=== PATIENT | female | born 1965 | race Caucasian/White ===

== ENCOUNTER 2019-03-25 14:30 | Inpatient (IN) ==
[2019-03-25] MEDS ORDERED: MORPHINE IV ONE (15:00)
--- NOTE | 2019-03-25 15:05 | PROVIDER DOCUMENTATION ---
HPI-Musculoskeletal Pain/Inj - GENERAL Stated Complaint: fall Time Seen by Provider: 03/25/19 14:57 Source: patient - HX OF PRESENT ILLNESS-MUSKULOSKELTAL Nature of Presenting Problem: 53 YO F no pmh presents s/p trip and fall while at work. States she landed on her right hip and had some numbness and deformity. Denies LOC, head trauma, neck or back pain, or recent illness. No bladder or bowel problems. She has not broken a bone before. Last time for eating was 1130 today. Quality of Pain: reports: aching Severity in ED: moderate Onset/Duration: 1-3 hours ago Timing: still present Modifying Factors: improves with: nothing Any recent injury?: Yes Locality of Occurance: Work Similar Symptoms Previously?: No - FALL INJURY Location of Pain/Injury: reports: pelvis, lower extremity, other (right hip) Pain Radiation: reports: no radiation Reason for Fall: reports: tripped Symptoms prior to fall:: reports: none Injury Associated Symptoms: reports: trouble walking. denies: back/neck pain, nausea, vomiting, weakness - HIP/PELVIS PAIN/INJURY Hip Pain Location: reports: hip (R) Pain Radiation: reports: no radiation Associated Symptoms: reports: denies symptoms Review of Systems - Adult - REVIEW OF SYSTEMS - ADULT Constitutional: reports: no symptoms reported Eyes: reports: no symptoms reported Ears, Nose, Mouth & Throat: reports: no symptoms reported Cardiovascular: reports: no symptoms reported Respiratory: denies: shortness of breath, wheezing Gastrointestinal: denies: abdominal pain, diarrhea, nausea, vomiting Genitourinary: denies: dysuria, frequency Musculoskeletal: reports: see HPI Integumentary: denies: no symptoms reported Neurological: reports: numbness Hematologic/Lymphatic: reports: no symptoms reported Allergic/Immunologic: reports: no symptoms reported Past History - Adult - PAST MEDICAL HISTORY-ADULT Review of Records: reports: Nursing Assessment Review, Medications Reviewed, Social history reviewed & non-contributory. Major Childhood Illnesses: reports: denies history Cardiovascular: reports: denies history Respiratory: reports: denies history Gastrointestinal: reports: denies history Obstetrical/Gynecological: reports: denies history Genitourinary: reports: denies history Musculoskeletal: reports: denies history Psychiatric: reports: denies history Endocrine/Immune: reports: denies history - PRIOR SURGERIES/PROCEDURES Surgical/Procedure History: reports: recent surgery, cholecystectomy - SOCIAL HISTORY Smoking: denies Substance Use: none/never Alcohol Use Frequency: occasionally Living Situation: family Physical Exam-Injury Related - Physical Exam-Injury Related Initial Vital Signs Reviewed: Yes General Appearance: appears well, alert, no apparent distress Head, Ears, Nose, Mouth & Throat: normocephalic/atraumatic, moist mucous membranes Neck: full range of motion, supple Cardiovascular: normal peripheral pulses, regular rate, rhythm, no edema Peripheral Pulses: dorsalis-pedis (R): 2+, dorsalis-pedis (L): 2+ Abdominal Exam: normal bowel sounds, non tender, soft. negative: guarding, rigid, rebound, tenderness, hernia, mass Extremity: deformity (angulation of left thigh). negative: normal range of motion, normal gait, pulse deficit, pedal edema Integumentary: normal color, warm/dry Neurologic: grossly normal Psych/Mental Status: normal mood/affect Progress - PLAN OF CARE/RESULTS Progress/Plan/Lab Results: Vital Signs - 8 hr 03/25/19 15:01 03/25/19 16:26 Temperature 98.2 F 97.6 F Pulse Rate 62 76 Respiratory Rate 16 24 Blood Pressure 157/95 144/91 O2 Sat by Pulse Oximetry 98 100 Laboratory Results - last 24 hr 03/25/19 03/25/19 03/25/19 16:25 16:25 17:27 WBC 11.65 H RBC 4.78 Hgb 14.8 Hct 44.1 MCV 92.3 MCH 31.0 MCHC 33.6 RDW Std Deviation 14.1 Plt Count 240 MPV 10.4 Immature Gran % (Auto) 0.2 Neut % (Auto) 88.1 H Lymph % (Auto) 6.2 L Perkins % (Auto) 5.3 Eos % (Auto) 0.0 Baso % (Auto) 0.2 Immature Gran # (Auto) 0.02 Neut # (Auto) 10.27 H Lymph # (Auto) 0.72 L Perkins # (Auto) 0.62 H Eos # (Auto) 0.00 Baso # (Auto) 0.02 PT 14.1 INR 1.07 PTT (Actin FS) 28.1 Sodium 140 Potassium 3.7 Chloride 99 Carbon Dioxide 25 Anion Gap 16 BUN 12 Creatinine 0.6 Estimated GFR/1.73 m2 > 60 BUN/Creatinine Ratio 20 Glucose 139 H Calculated Osmolality 281 Calcium 8.7 L Total Bilirubin 0.78 AST 60 H ALT 25 Alkaline Phosphatase 85 Total Protein 7.5 Albumin 4.7 Globulin 2.8 Albumin/Globulin Ratio 1.7 Orders Category Date Time Status NPO Diet 03/25/19 16:43 Active CHEST-1 VIEW [RAD] Stat Exams 03/25/19 15:46 Completed FEMUR MIN 2 VIEWS RIGHT [RAD] Stat Exams 03/25/19 14:34 Completed XRAY PELVIS W/HIP 2-3VW RT [RAD] Stat Exams 03/25/19 14:58 Completed CBC WITH ELECTRONIC DIFF [HEME] Stat Lab 03/25/19 17:27 Completed COMPREHENSIVE METABOLIC PANEL [CHEM] Stat Lab 03/25/19 16:25 Completed HCG [ TEST-SERUM] [PREG] Stat Lab 03/25/19 15:01 Uncollected PROTIME WITH INR [COAG] Stat Lab 03/25/19 16:25 Completed PTT [COAG] Stat Lab 03/25/19 16:25 Completed Hydromorphone [Dilaudid] Med 03/25/19 16:19 Discontinued 1 mg IV NOW ONE Morphine Med 03/25/19 15:00 Discontinued 4 mg IV NOW ONE Transfer/Admit Order [TRANSFER] Routine Transfer 03/25/19 17:19 Ordered Result Diagrams: 03/25/19 17:27 03/25/19 16:25 - REASSESSMENT Reassessment #1 Time Reassessed: 16:20 Status: improving (pt given 1 of dilaudid. states pain is improving. spoke with ortho who states to admit pt. will admit to hospitalist. labs pending.) - XRAY 1 XRAY: Right (EXAM: FEMUR MIN 2 VIEWS RIGHT 03/25/2019 HISTORY: pain, fall TECHNIQUE: Right femur two views COMMENT: There is a spiral fracture of the upper shaft of the femur. There is displacement of the distal fragment anterolateral laterally and some angulation of the distal fragment medially. IMPRESSION: Fracture of the femur. Electronically signed by Ryan Gutierrez 03/25/2019 4:06 PM) XRAY Study: Femur 2 XRAY: Right (EXAM: XRAY PELVIS W/HIP 2-3VW RT 03/25/2019 HISTORY: injury TECHNIQUE: AP pelvis and right hip COMMENT: There is a fracture of the upper shaft of the femur. The hip joint spaces are well-maintained. There is no evidence of acute fracture or dislocation otherwise. IMPRESSION: Fracture of the proximal right femur. Electronically signed by Ryan Gutierrez 03/25/2019 4:07 PM) XRAY Study: Hip - CONSULTS/PCP/HOSPITALIST Notification #1 *Consult/PCP/Hospitalist*: Dr. Kaba Time Discussed: 16:42 Consult Disposition: Will see in ED #2 Consult: Dr. Leal Time Discussed: 16:55 Consult Disposition: Will see in ED Departure - Departure Date of Disposition Decision: 03/25/19 Time of Disposition Decision: 16:46 DIAGNOSIS: Right femoral fracture Disposition: ADMITTED INPATIENT Certified Medical Emergency: Emergent Condition: Stable - Critical Care Note This patient required my direct & personal management of CC.: No Attestation - Physician/ AMELIA Attestation The physician spent face to face time with patient:: Yes Advanced Practice Provider documentation review:: Supervising physician onsite and consulted in the evaluation and care of this patient. The physician did have a face to face encounter with the patient.
--- NOTE | 2019-03-25 16:08 | Diag Imaging Result Doc PS360 ---
EXAM: FEMUR MIN 2 VIEWS RIGHT 03/25/2019 HISTORY: pain, fall TECHNIQUE: Right femur two views COMMENT: There is a spiral fracture of the upper shaft of the femur. There is displacement of the distal fragment anterolateral laterally and some angulation of the distal fragment medially. IMPRESSION: Fracture of the femur. Electronically signed by Ryan Gutierrez 03/25/2019 4:06 PM
--- NOTE | 2019-03-25 16:09 | Diag Imaging Result Doc PS360 ---
EXAM: XRAY PELVIS W/HIP 2-3VW RT 03/25/2019 HISTORY: injury TECHNIQUE: AP pelvis and right hip COMMENT: There is a fracture of the upper shaft of the femur. The hip joint spaces are well-maintained. There is no evidence of acute fracture or dislocation otherwise. IMPRESSION: Fracture of the proximal right femur. Electronically signed by Ryan Gutierrez 03/25/2019 4:07 PM
--- NOTE | 2019-03-25 16:10 | Diag Imaging Result Doc PS360 ---
EXAM: CHEST-1 VIEW 03/25/2019 HISTORY: fracture TECHNIQUE: AP chest COMMENT: There is no evidence of acute cardiac or pulmonary disease. The appearance of the chest has not changed significantly since 03/29/2018. IMPRESSION: No acute disease. Electronically signed by Ryan Gutierrez 03/25/2019 4:07 PM
[2019-03-25] MEDS ORDERED: DILAUDID IV ONE (16:19)
[2019-03-25 16:53] LABS: INR 1.07; PROTIME 14.1 Seconds (11.0-16.0); PTT 28.1 Seconds (22.3-41.8)
[2019-03-25] MEDS ORDERED: KEFZOL 1 GM/D5W 1 GM/50 ML IVPB IV ONE (17:57)
[2019-03-25 17:59] LABS: BASO# 0.02 X1000 (0.0-0.2); BASO% 0.2 % (0.0-0.8); HEMATOCRIT 44.1 % (37.0-47.0); HEMOGLOBIN 14.8 g/dL (12.0-16.0); IMM GRAN# 0.02 X1000 (0.0-0.04); IMM GRAN% 0.2 % (0.0-0.5); LYMPH# 0.72 X1000 (1.2-3.4); LYMPH% 6.2 % (20.5-51.1); MCHC 33.6 g/dL (33-37); MCV 92.3 FL (81-99); MONO# 0.62 X1000 (0.11-0.59); MONO% 5.3 % (1.7-9.3); MPV 10.4 FL (7.4-10.4); NEUT# 10.27 X1000 (1.4-6.5); NEUT% 88.1 % (42.2-75.2); PLT 240 X1000 (130-400); RBC 4.78 XMIL (4.2-5.4); RDW 14.1 % (11.5-14.5); WBC 11.65 X1000 (4.8-10.8)
--- NOTE | 2019-03-25 18:01 | HISTORY AND PHYSICAL ---
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 Actually she has never had any other fractures before, really no medical problems. She has had cataracts, had her gallbladder taken out last year, and she has had colonoscopies. She has no known drug allergies. She is a runner so she has been in good shape. FAMILY HISTORY: She did not report anything concerning. SOCIAL HISTORY: She is negative for tobacco or ethanol. No illicit drugs. REVIEW OF SYSTEMS: Constitutional: She reported she felt in her normal state of health. No reports of weight gain or loss. She has been running pretty regularly and exercising regularly. HEENT: Does not report any change in vision or hearing acuity. No lymphadenopathy or upper respiratory complaints. Cardiovascular: No chest pain or tachy palpitation. Pulmonary: No increased work of breathing or dyspnea. Gastrointestinal/Genitourinary: No change in her bowels. No complaints of hematochezia or gross hematuria or recent urinary tract infection. PHYSICAL EXAMINATION: VITAL SIGNS: In the emergency room, temperature 97.6 degrees, pulse 76, respirations 24 and blood pressure 144/90. HEENT: Pupils are equal and round. LUNGS: Clear in all lung huff. CARDIOVASCULAR: Regular rhythm and rate. ABDOMEN: Soft, nondistended. EXTREMITIES: Right leg is about 3 cm or 4 cm shorter than the left with external rotation. Height 5 feet 4 inches, weight 120 pounds. No pedal edema. Good pedal, popliteal and femoral pulses. IMAGING: Chest x-ray: No acute disease. No infiltrate. Femur x-ray: Fracture of the femur. ASSESSMENT AND PLAN: Proximal fracture of her right femur from mechanical fall. No loss of consciousness. I do not see any reason not to pursue surgery. She is ready. Protime is 14.1. PTT was 28. Orthopedics consulted. Wait on some of her labs. cc: Rodríguez Leal MD
[2019-03-25 18:19] LABS: AGAP 16; ALB/GLOB RATIO 1.7; ALBUMIN 4.7 g/dL (3.5-5.0); ALKALINE PHOSPHATASE 85 U/L (32-104); BUN 12 mg/dL (8-22); CALCIUM 8.7 mg/dL (8.8-10.2); CHLORIDE 99 mmol/L (98-107); COSMO 281; CREATININE 0.6 mg/dL (0.5-0.9); ESTIMATED GFR > 60; GLUCOSE 139 mg/dL (70-104); GOT 60 U/L (10-30); GPT 25 U/L (10-36); POTASSIUM 3.7 mmol/L (3.5-5.1); SODIUM 140 mmol/L (136-145); TCO2 25 mmol/L (25-35); TOTAL BILIRUBIN 0.78 mg/dL (0.20-1.00); TOTAL PROTEIN 7.5 g/dL (6.3-8.3)
--- NOTE | 2019-03-25 18:34 | ORTHOPAEDICS CONSULTATION ---
DATE: 03/25/2019 SERVICE: Orthopaedic surgery. Consult from Perry Farrell in the ER. REASON FOR CONSULTATION: Right femur fracture. PAST MEDICAL HISTORY: None. PAST SURGICAL HISTORY: 1. Cholecystectomy. 2. Colonoscopy MEDICATIONS: None. ALLERGIES: No known drug allergies. 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 She denies any tobacco, alcohol, drug use. She lives in [place]. FAMILY HISTORY: Noncontributory. REVIEW OF SYSTEMS: Negative other than what is listed in the history of present illness. CHIEF COMPLAINT: Right thigh pain. HISTORY OF PRESENT ILLNESS: Ms. Ponce is a 53-year-old lady who was taken via ambulance to [facility] ER after sustaining a same-level fall while at school. She states she was walking down the hallway and slipped and had a twisting type mechanism when she fell and injured her leg. She was unable to ambulate after that. X-rays demonstrated a right midshaft femur fracture. Orthopedic surgery was thus consulted. Patient denies any prior injury to her right femur. She does state she pulled her IT band on this side a couple of weeks before. She denies any history of cancer or metabolic bone disease. PHYSICAL EXAMINATION: General: Ms. Ponce is a 53-year-old female, appears well nourished, well developed in no acute distress. She is awake, alert and oriented x3. She is very polite and cooperative during examination. HEENT: Normocephalic, atraumatic. Respiratory: Nonlabored breathing. Cardiovascular: Regular rate and rhythm. Extremities: Examination of right lower extremity reveals skin to be intact. The patient's leg is shortened and internally rotated to contralateral side. Her thigh is swollen but compressible. She is nontender at her knee, leg, ankle or foot. Motor is intact EHL, tibialis anterior, gastrocsoleus complex. Sensation intact to light touch L3 to S1. Dorsalis pedis pulse is palpable and equal bilaterally. Calf is soft and depressible. IMAGING: Two views of the right hip as well as 2 views of the right femur were reviewed demonstrating a right proximal third oblique femoral shaft fracture with significant shortening. ASSESSMENT: A 53-year-old female with right closed femoral shaft fracture. PLAN: Long discussion was held with the patient and regarding the injury and treatment options. The patient given the fracture pattern should benefit from closed reduction intramedullary nailing. Risks, benefits, alternative therapies were discussed with patient regarding surgery. Risks of surgery include, but are not limited to risks of bleeding, infection, damage to nerves, vessels around the area, continued pain following surgery, malunion, nonunion, need for revision surgery. Also risks of anesthesia including blood clot, stroke, heart attack, even . Patient understands these risks. All questions were answered. Informed consent was obtained. We will plan on taking the patient to the operating room at the earliest convenience hopefully tonight. She has been n.p.o. since 11:30. We will keep her n.p.o. for now. She is to be admitted to the hospitalist service, and Orthopedics will continue to follow.
[2019-03-25] MEDS ORDERED: ZOFRAN IV PRN ×2 (19:17→23:07)
[2019-03-25] MEDS ORDERED: DILAUDID IV PRN (19:17)
[2019-03-25] MEDS: NS 1,000 ML IV SCH (19:47)
[2019-03-25] MEDS ORDERED: PEPCID PO ONE (19:59)
[2019-03-25] MEDS ORDERED: REGLAN PO ONE (20:00)
[2019-03-25] MEDS ORDERED: VERSED ONE (21:05)
[2019-03-25] MEDS ORDERED: DIPRIVAN 1% ONE (21:06)
[2019-03-25] MEDS ORDERED: FENTANYL ONE (21:06)
[2019-03-25] MEDS ORDERED: SENSORCAINE 0.25%/EPI 1:200,000 ONE (21:22)
[2019-03-25] MEDS ORDERED: KEFZOL 1 GM/D5W 1 GM/50 ML IVPB ONE (21:27)
[2019-03-25 22:02] LABS: BILIRUBIN URINE NEGATIVE (NEGATIVE); BLOOD URINE NEGATIVE (NEGATIVE); COLOR YELLOW; GLUCOSE URINE NEGATIVE (NEGATIVE); KETONE URINE TRACE mg/dL (NEGATIVE); NITRITE URINE POSITIVE (NEGATIVE); PROTEIN URINE NEGATIVE (NEGATIVE); SP GRAVITY URINE 1.016; TURBIDITY URINE HAZY (CLEAR); UR EPITHELIAL CELLS <10 /HPF (<10); URINE BACTERIA 4+ /HPF; URINE RBC <10 /HPF (<10); URINE SOURCE CATH; URINE WBC TNTC /HPF (<10); UROBILINOGEN URINE NORMAL (NORMAL)
[2019-03-25 22:03] LABS: LEUKOCYTES URINE MODERATE (NEGATIVE)
[2019-03-25] MEDS ORDERED: HALDOL IV PRN (23:07)
[2019-03-25] MEDS ORDERED: MILK OF MAGNESIA PO PRN (23:07)
[2019-03-25] MEDS: DILAUDID ONE ×2 (23:21→23:25)
[2019-03-26] MEDS: TYLENOL PO PRN ×2 (02:08→10:04)
[2019-03-26] MEDS: COLACE PO SCH ×2 (04:08→20:30)
[2019-03-26] MEDS: MORPHINE IV PRN ×3 (04:09→18:38)
[2019-03-26] MEDS: KEFZOL 1 GM/D5W 1 GM/50 ML IVPB IV SCH ×3 (05:15→20:30)
[2019-03-26] MEDS: LOVENOX SUBQ SCH (05:15)
[2019-03-26 06:41] LABS: AGAP 12; ALB/GLOB RATIO 1.4; ALBUMIN 3.4 g/dL (3.5-5.0); ALKALINE PHOSPHATASE 65 U/L (32-104); BUN 8 mg/dL (8-22); CALCIUM 7.7 mg/dL (8.8-10.2); CHLORIDE 103 mmol/L (98-107); COSMO 280; CREATININE 0.5 mg/dL (0.5-0.9); ESTIMATED GFR > 60; GLUCOSE 167 mg/dL (70-104); GOT 167 U/L (10-30); GPT 105 U/L (10-36); POTASSIUM 4.2 mmol/L (3.5-5.1); SODIUM 139 mmol/L (136-145); TCO2 24 mmol/L (25-35); TOTAL BILIRUBIN 1.12 mg/dL (0.20-1.00); TOTAL PROTEIN 5.8 g/dL (6.3-8.3)
[2019-03-26 06:53] LABS: BASO# 0.01 X1000 (0.0-0.2); BASO% 0.1 % (0.0-0.8); HEMATOCRIT 33.3 % (37.0-47.0); HEMOGLOBIN 10.8 g/dL (12.0-16.0); IMM GRAN# 0.02 X1000 (0.0-0.04); IMM GRAN% 0.2 % (0.0-0.5); LYMPH# 0.54 X1000 (1.2-3.4); LYMPH% 5.3 % (20.5-51.1); MCH 30.4 PG (27-31); MCHC 32.4 g/dL (33-37); MCV 93.8 FL (81-99); MONO# 0.69 X1000 (0.11-0.59); MONO% 6.7 % (1.7-9.3); MPV 10.4 FL (7.4-10.4); NEUT# 9.01 X1000 (1.4-6.5); NEUT% 87.7 % (42.2-75.2); PLT 218 X1000 (130-400); RBC 3.55 XMIL (4.2-5.4); RDW 14.1 % (11.5-14.5); WBC 10.27 X1000 (4.8-10.8)
--- NOTE | 2019-03-26 07:40 | Diag Imaging Result Doc PS360 ---
EXAM: FEMUR MIN 2 VIEWS RIGHT INDICATION: Post op TECHNIQUE: 3 views COMPARISON: 03/25/2019 FINDINGS: There has been interval ORIF for the fracture of the midshaft of the femur seen on the recent prior study. The femur has been realigned. A medullary del and helical screw are in place in the expected position. There is a fragment of bone that is minimally displaced at the site of the original fracture that cannot be identified on the previous study. It is at the lateral cortex. No other new periprosthetic fracture is identified. There are skin ney at the lateral aspect of the thigh. IMPRESSION: Interval ORIF with what appears to be a new fracture fragment at the mid shaft of the femur. Please see above discussion. Electronically signed by Fernando Griffith 03/26/2019 7:38 AM
[2019-03-26 08:04] LABS: BANDS 4 % (0-1); LYMPHS 6 % (21-51); MONO 3 % (1-9); SEGS 87 % (42-75)
--- NOTE | 2019-03-26 09:00 | OPERATIVE NOTE ---
PROCEDURE DATE: 03/25/2019 PREOPERATIVE DIAGNOSIS: Right femoral shaft fracture. POSTOPERATIVE DIAGNOSIS: Right femoral shaft fracture. PROCEDURE: Closed reduction and intramedullary nailing of right femoral shaft fracture. ATTENDING SURGEON: Dr. Emerson Kaba. DOPE EDGER: DELANEY Carreon whose assistance was necessary for fracture reduction, retraction, and placement of implants. ANESTHESIA: General endotracheal anesthesia. COMPLICATIONS: None. SPECIMENS: None. BLOOD LOSS: 100 mL. DRAINS: None. IMPLANTS: Synthes right-side trochanteric femoral nail measuring 11 mm x 380 mm with a 90 mm blade and 2 distal interlocking screws. INDICATIONS FOR PROCEDURE: Ms. Ponce is a 53-year-old lady who presented to [facility] earlier this afternoon after sustaining a same-level fall. She was unable to get up and had deformity in her leg and the ambulance brought her to the hospital. X-ray showed a proximal 3rd femur shaft fracture. Given these findings, the decision was made to proceed to the operating room for closed reduction and intramedullary nailing. Risks, benefits, alternative therapies were discussed with the patient regarding surgery. Risks of surgery include, but are not limited to, risk of bleeding, infection, damage to nerves and vessels around the area, continued pain following surgery, need for revision surgery, malunion, nonunion, and need for revision surgery. Also risks of anesthesia including blood clot, stroke, heart attack, even . The patient understands these risks. All questions were answered and informed consent obtained. PROCEDURE IN DETAIL: Ms. Ponce was identified by wrist band and greeted in preoperative holding area on 03/25/2019. Her right lower extremity, which was the operative side, was marked with indelible ink per [facility] side and site protocol. Following this, the patient was transferred back to the operating room for surgery. Upon entering the OR, she was intubated on her hospital stretcher. She was then transferred in supine position on to a [place] table. All bony prominences were well padded. X-ray was brought in and traction was pulled to help maintain reduction. We then prepped and draped the right lower extremity in routine sterile fashion. Formal time-out was performed confirming correct patient, procedure, operative site, administration of perioperative antibiotics. Everyone was in agreement. Patient received 2 g Ancef prior to incision. A 10 blade knife was used to make standard 3 cm longitudinal incision just proximal to the greater trochanter. A knife was used to dissect through skin, subcutaneous tissue, and fascia. The tip of the greater trochanter was then palpated. A guide pin was placed and taken down to the level of the lesser trochanter. When we were satisfied with the position on both AP and lateral films, we then took the channel anterior reamer and reamed down the femoral canal. At this time, guidewire was removed and finger reduction tool was placed across the fracture site. Reduction maneuver was held as the finger was placed across fracture. We then advanced a ball-tip guidewire down to the level of the distal femur. A measuring device was then used to measure the length of the nail which was found to be 380 mm. Once this was done, we then began with sequential reaming, starting with a 10 mm reamer and going up to 12.5. We had excellent chatter with 12.5. Reduction of the fracture was held during reaming. At this time, a Synthes TFN nail was then assembled on the back table. We then inserted it in routine fashion. The nail was taken across the fracture site and down to the distal femur. We were satisfied with the placement of the nail. We then made our more distal 2nd incision and placed the cannulas and guide for our cephalomedullary screw. When we were satisfied with position, the guide pin was driven up into the femoral head. AP and lateral images were taken confirming placement of the pin up in the center of the femoral head. Once this was done, it was then measured and found to measure 95 mm. We then opened the 90 mm spherical blade. The lateral canal was then broached with the drill and the femoral neck was then reamed up to the tip of the guide pin. We then inserted our spherical blade in routine fashion. At this time the blade was locked in position and the nail insertion jig was removed. We then released traction from the femur prior to removing the nail insertion jig and malleted against the nail label sewer in order to gain some additional compression across fracture site. Once this was done, we proceeded with placement of our 2 distal interlocking screws in routine fashion using perfect havasupai technique. We then took final AP and lateral images of the hip fracture site and distally at the knee. We had excellent alignment of the fracture in both AP and lateral planes with good compression and stable fixation. At this time, all wounds were copiously irrigated with normal saline. #1 Vicryl was used for closure of IT band. 2-0 Vicryl suture was then used for subcutaneous tissue closure followed by ney for skin closure. We then injected 20 mL of 0.25% Marcaine with epinephrine around our incision sites. Wounds were then dressed with Xeroform, 4x4s, Telfa and Tegaderm dressing. The patient was then extubated, transferred to her hospital stretcher and taken to recovery in stable condition. There were no acute complications during the procedure. All sponge and sharp counts were correct at the conclusion of the procedure. [facility]
[2019-03-26] MEDS: FERROUS SULFATE PO SCH (10:03)
--- NOTE | 2019-03-26 15:42 | ORTHOPAEDICS PROGRESS NOTE ---
DATE: 03/26/2019 SUBJECTIVE: No acute events overnight. Patient has done well postoperatively. She reports pain is much improved. She has been drinking some water but has not had much of an appetite as of yet. She had her catheter removed earlier in the morning but has not voided voluntarily. Denies nausea or vomiting. OBJECTIVE: Hematocrit 33. Examination of right lower extremity shows surgical dressings to be clean, dry, intact. She has some swelling in the thigh; however, it is soft and depressible. No pain with log roll of the leg. Motor is intact in quadriceps, hamstrings, EHL, tibialis anterior, gastrocsoleus complex. Sensation intact to light touch L3-S1. Dorsalis pedis pulse palpable and equal bilaterally. ASSESSMENT: A 53-year-old female status post closed reduction and intramedullary nailing of right femoral shaft fracture. PLAN: 1. Patient will be weightbearing as tolerated right lower extremity. Physical therapy will work with her on immobilization using assistive devices as needed. 2. Ice to the right thigh p.r.n. 3. Lovenox for DVT prophylaxis. Recommend discharging patient on aspirin 325 mg daily x6 weeks. 4. I appreciate Hospital's recommendations. 5. Disposition per primary team. She will likely be okay to go home later this afternoon or tomorrow, pending mobilization with physical therapy and pain control. I will see her back in clinic in 2 weeks for a wound check and staple removal.
[2019-03-26] MEDS: NS 1,000 ML IV SCH (17:41)
--- NOTE | 2019-03-26 18:24 | PROGRESS NOTE ---
DATE: 03/26/2019 SUBJECTIVE: This morning, Ms. Ponce refers to be feeling a lot better. She denies any urinary symptoms, by the way. OBJECTIVE: Vital signs: Blood pressure is 137/71, pulse of 69, respirations 14, temperature is 98.3 degrees. On general exam, Ms. Ponce is a 53-year-old female. She is in bed, no distress. Mucosa is pink and moist. Anicteric. Acyanotic. Neck is supple. Chest was clear to auscultation. Cardiovascular: Regular rate and rhythm. Abdomen is soft. Extremities: No pedal edema. Distal pulses are present. Musculoskeletal: The right lower extremity is minimally swollen proximally. The surgical site looks clean with minimal soiling of the dressing. LABORATORY DATA: Has been reviewed. Hemoglobin is down to 10.8, rest of CBC is unremarkable. Chemistry is also reviewed. AST and ALT are slightly abnormal. The patient's current medications have all been reviewed. Surgery report has also been reviewed. Patient underwent a closed reduction and intramedullary nailing of the right femur shaft fracture yesterday by Dr. Kaba. ASSESSMENT: 1. Status post mechanical fall resulting into a proximal shaft fracture of the right femur with angulation. The patient is status post closed reduction and intramedullary nailing of the right femur. Today is day 1 postoperative. Ms. Ponce has been evaluated by Physical Therapy. Today she was able to do 20 feet with them. We will be waiting on further recommendations from Orthopedics. 2. Asymptomatic bacteriuria. Urine culture is growing gram-negative del. Ms. Ponce denies any symptoms so we are not treating it. 3. Transaminitis with AST slightly more than ALT. We will check a hepatitis panel to rule out any viral etiology. cc: Omar Walter MD
[2019-03-27] MEDS: TYLENOL PO PRN ×2 (00:23→11:06)
[2019-03-27] MEDS: NS 1,000 ML IV SCH (00:41)
[2019-03-27] MEDS: LOVENOX SUBQ SCH (05:02)
[2019-03-27 06:41] LABS: HEMATOCRIT 29.8 % (37.0-47.0); HEMOGLOBIN 9.4 g/dL (12.0-16.0)
[2019-03-27] MEDS: FERROUS SULFATE PO SCH (11:06)
[2019-03-27 11:19] VITALS: BP 128/71
--- NOTE | 2019-03-27 11:32 | ORTHOPAEDICS PROGRESS NOTE ---
DATE: 03/27/2019 SUBJECTIVE: No acute events overnight. Patient states she is feeling much better. She walked about 20 feet with physical therapy yesterday. She is tolerating a diet. She states she is ready to go home. OBJECTIVE: General: Hematocrit of 30, down from 33 yesterday. Vital Signs: Afebrile. Vital signs stable. Extremity examination: Right lower extremity reveals surgical incisions to be clean, dry, intact. Thigh is swollen, however it is compressible. Motor intact to EHL, tibialis anterior, gastrocsoleus complex. Sensation intact to light touch L3-S1. Dorsalis pedis pulse is palpable. ASSESSMENT: A 53-year-old female status post NATALEE, right femur fracture postoperative day #2. PLAN: 1. Let patient be weightbearing as tolerated, right lower extremity. Physical therapy to mobilize. 2. Lovenox deep vein thrombosis prophylaxis while in-house. Recommend discharging patient on aspirin 325 mg oral daily for deep vein thrombosis prophylaxis for 4 to 6 weeks. 3. Appreciate hospitalists recommendations. 4. Ice, right thigh as needed. 5. Disposition: The patient is likely okay to be discharged home this afternoon assuming she needs physical therapy goals. I will see her in clinic in 10 to 14 days for wound check and x- rays. I gave her a business card; she will call to schedule the appointment.
[2019-03-28 12:46] LABS: HEPATITIS PROFILE ACUTE SEE COMMENTS
--- NOTE | 2019-03-29 05:06 | DISCHARGE SUMMARY ---
ADMISSION DATE: 03/25/2019 DISCHARGE DATE: 03/27/2019 DISPOSITION: Home. FOLLOW-UP: 1. Dr. Gladys Vera. 2. Dr. Emerson Kaba. CONSULTATION DURING THIS ADMISSION: Orthopedics was consulted. Patient was seen by Dr. Kaba. INVASIVE PROCEDURES DONE DURING ADMISSION: Closed reduction and intramedullary nailing of the right femoral shaft fracture was done by Dr. Kaba on 03/25/2019. ADMISSION DIAGNOSIS: Proximal fracture of right femur from mechanical fall. DIAGNOSIS AT TIME OF DISCHARGE: 1. Status post mechanical fall resulting in a proximal right femur shaft fracture. The patient is status post closed reduction and intramedullary nailing of the fracture. 2. Mild transaminitis. 3. Anemia secondary to blood loss during surgery and dilution. 4. Asymptomatic Klebsiella pneumoniae bacteriuria. DISCHARGE MEDICATIONS: 1. [place] 5 mg q.6 hours. 2. Acetaminophen. 3. Colace 200 mg p.o. at bedtime. 4. Iron sulfate 325 p.o. daily. 5. Aspirin 325 p.o. daily for DVT prophylaxis. PRESENTING COMPLAINT: Mechanical fall. HISTORY OF PRESENTING COMPLAINT: Ms Ponce is a 53-year-old, extremely healthy individual who does long distance running, seems to be in healthy state until she fell at school, sustaining an injury to her right hip. Immediately she could not get up and bear any weight on her foot. She immediately realized that the hip started getting swollen. Emergency services were called, the patient was brought into the emergency room, where she was initially evaluated and imaging studies were done, including an x-ray of the femur, which revealed a fracture of the femur. A chest x-ray was unremarkable. The patient was admitted for further surgical intervention. HOSPITAL COURSE: Ms Ponce was admitted to the medical-surgical floor. She was adequately fluid resuscitated and Orthopedics was consulted. Ms Pnoce was seen and evaluated by Dr. Kaba. A decision was made to take her to the OR, and fracture was reduced and intramedullary nailing was subsequently done. The patient tolerated the intervention well. Postoperatively, she did okay, was evaluated also by physical therapy. On the day of discharge, she was able to do about 250 feet with weightbearing as tolerated. The patient was seen by Orthopedics on the day of discharge, and they were okay with her being discharged, and they also recommended to be on aspirin 325 mg for DVT prophylaxis for a total of 6 weeks. Ms Ponce had a mild elevation in her hepatitis panel on admission. Hepatitis levels, viral hepatitis, were done, at the time of discharge, results were not ready. The patient will review this with Dr. Kaba. All the discharge instructions were discussed with her. She will follow up with Dr. Kaba in about 2 weeks. She has also been advised to follow up with her primary care doctor in about a week to 2 weeks. PHYSICAL EXAMINATION: Vital signs: At the time of discharge, blood pressure was 128/71, pulse of 93, respirations 16, temperature 98 degrees. Physical exam was unremarkable, except for the mild swelling around the site of the surgery and sterile dressing over the surgical site. TIME SPENT: For discharge was 37 minutes. cc: MD Emerson Dunn MD Ashley Burchfield, MD
== END 2019-03-27 15:29 | disposition home or self-care (01) | DRG 482 ==
LOC: SUPCPDRO → ED 14:30 → SUATTDRO 17:48 → 4N 17:48
PROVIDERS: ATTEND Internal Medicine